=== PATIENT | female | born 1980 | race Caucasian/White ===

== ENCOUNTER → 2016-08-07 | Outpatient (CLI) | payer BC ==
[2016-08-07 12:05] LABS: URINE APPEARANCE CLEAR (CLEAR); URINE BILIRUBIN NEG (NEG); URINE COLOR YELLOW; URINE EPITHELIAL CELL AUTO >30 /lpf (0-5); URINE NITRITE NEG (NEG); URINE SPECIFIC GRAVITY 1.026 (1.000-1.030); UROBILINOGEN NEG (NEG)
[2016-08-07 12:14] LABS: MANUAL MICROSCOPIC REQUIRED? NO; REVIEW REQ? NO
== END | disposition home or self-care (01) ==
LOC: C.LABSPEC 11:01
PROVIDERS: ATTEND Obstetrics & Gynecology
DX: O34.219 Maternal care for unspecified type scar from previous cesarean delivery (principal)

== ENCOUNTER → 2016-08-15 | Outpatient (CLI) | payer BC ==
[2016-08-15 10:25] LABS: BASO % 0.2 %; BASO ABS # 0.01 K/uL (0-0.2); COMPLETE YES; EOS % 0.6 %; HEMATOCRIT 40.4 % (37-47); IG% 0.2 %; LYMPH % 29.4 %; LYMPH ABS # 1.82 K/uL (1.2-3.4); MEAN CELL VOLUME 88.4 fL (80-100); MEAN CORPUSCULAR HEMOGLOBIN 30.4 pg (25-34); MEAN CORPUSCULAR HGB CONC 34.4 g/dl (32-36); MEAN PLATELET VOLUME 10.1 fL (7.4-10.4); MONO % 6.1 %; NEUT % 63.5 %; PLATELET COUNT 197 K/uL (130-400); RED BLOOD COUNT 4.57 M/uL (4.2-5.4)
== END | disposition home or self-care (01) ==
LOC: C.LAB1850 09:02
PROVIDERS: ATTEND Obstetrics & Gynecology
DX: O34.219 Maternal care for unspecified type scar from previous cesarean delivery (principal)

== ENCOUNTER → 2016-08-15 | Outpatient (CLI) | payer BC ==
[2016-08-18 01:39] LABS: CHLAMYDIA TRACH RNA*** NOT DETECTED (NOT DETECTED); GC (NEIS GONORRHOEAE)RNA** NOT DETECTED (NOT DETECTED)
== END | disposition home or self-care (01) ==
LOC: C.LABSPEC 13:53
PROVIDERS: ATTEND Obstetrics & Gynecology
DX: O34.219 Maternal care for unspecified type scar from previous cesarean delivery (principal)

== ENCOUNTER → 2016-10-04 | Outpatient (CLI) | payer BC ==
[2016-10-04 13:23] LABS: GTGD 50 Grams
[2016-10-09 15:27] LABS: AFP MULTIPLE OF MEDIAN 0.97; AFPTS GESTATIONAL AGE 15.9 WEEKS; AFPTS INSULIN DEP DIABETIC? NO; AFPTS MATERNAL WT 195 LBS; ALPHA-FETOPROTEIN RACE CAUCASIAN=W; ESTRIOL MULTIPLE OF MEDIAN 1.07; HISTORY OF NTD NO; INHIBIN A 132 PG/ML; INHIBIN A MOM 0.86; REPEAT SAMPLE? NO; hCG MULTIPLE OF MEDIAN 1.19
== END | disposition home or self-care (01) ==
LOC: C.LAB1850 10:34
PROVIDERS: ATTEND Obstetrics & Gynecology
DX: Z34.81 Encounter for supervision of other normal pregnancy, first trimester (principal)

== ENCOUNTER → 2017-02-22 | Outpatient (CLI) | payer BC | END | disposition home or self-care (01) | LOC: C.LABSPEC 11:13 | PROVIDERS: ATTEND Obstetrics & Gynecology | DX: Z34.83 Encounter for supervision of other normal pregnancy, third trimester (principal) ==

== ENCOUNTER 2017-03-24 02:51 | Inpatient (IN) | payer OTHER ==
[~2017-03-24] VITALS: Ht 180.3 cm; Wt 99.5 kg
[~2017-03-24 02:51] MED LIST: PRENTAB26 PO
[2017-03-24] MEDS ORDERED: LACTATED RINGER'S 1000ML 1,000 ML IV PRN (03:03)
[2017-03-24 03:30] LABS: HEMATOCRIT 38.2 % (37-47); HEMOGLOBIN 13.1 g/dL (12.0-16.0); MEAN CELL VOLUME 90.5 fL (80-100); MEAN PLATELET VOLUME 10.6 fL (7.4-10.4); PLATELET COUNT 127 K/uL (130-400); RED CELL DISTRIBUTION WIDTH CV 14.1 % (11.5-14.5); RED CELL DISTRIBUTION WIDTH SD 46.2 fL (36.4-46.3); WHITE BLOOD COUNT 10.84 K/uL (4.8-10.8)
[2017-03-24] MEDS ORDERED: BUPIVACAINE 0.25% 30 ML VIAL ONE (03:31)
[2017-03-24] MEDS ORDERED: EpHEDrine SULFATE INJ 50 MG/ML AMP ONE (03:31)
[2017-03-24] MEDS ORDERED: FENTANYL CITRATE INJ 50 MCG/1 ML 2 ML VIAL ONE (03:31)
[2017-03-24] MEDS ORDERED: FENTANYL 2MCG/ML ROPIV 1.25MG/ML 100ML BAG EPI ONE (03:32)
[2017-03-24 03:46] LABS: MEAN CORPUSCULAR HGB CONC 34.3 g/dl (32-36)
[2017-03-24] MEDS ORDERED: LACTATED RINGER'S 1000ML 500 ML IV PRN (04:08)
[2017-03-24] MEDS: LACTATED RINGER'S 1000ML 1,000 ML IV SCH ×2 (04:13→04:14)
[2017-03-24] MEDS ORDERED: NALOXONE HCL INJ 0.4 MG/1 ML VIAL/CARP IV PRN (04:15)
[2017-03-24] MEDS ORDERED: EpHEDrine SULFATE INJ 50 MG/ML AMP IV PRN (04:15)
[2017-03-24] MEDS ORDERED: FENTANYL 2MCG/ML ROPIV 1.25MG/ML 100ML BAG EPI PRN (04:15)
[2017-03-24 05:40] VITALS: Ht 180.3 cm; Wt 99.5 kg
[2017-03-24] MEDS ORDERED: OXYTOCIN 30 UNITS/500ML NSS IV ONE (06:53)
[2017-03-24] MEDS ORDERED: OXYCODONE/ACETAMINOPHEN 5-325 TAB PO PRN (09:15)
[2017-03-24] MEDS ORDERED: ACETAMINOPHEN/CODEINE 300/30MG TAB PO PRN ×2 (09:15)
[2017-03-24] MEDS ORDERED: DIPHTHERIA/TETANUS/PERTUSSIS 0.5 ML SYR/VIAL IM. ONE (09:15)
[2017-03-24] MEDS ORDERED: OXYTOCIN 30 UNITS/500ML NSS IV PRN (09:15)
[2017-03-24] MEDS ORDERED: LANOLIN OINT EXT PRN (09:15)
[2017-03-24] MEDS ORDERED: SUPERCREAM 0.870 % 15GM JAR EXT PRN (09:15)
[2017-03-24] MEDS ORDERED: HYDROCORTISONE ACETATE 25 MG SUPP PR PRN (09:15)
[2017-03-24] MEDS ORDERED: BENZOCAINE 20% AER SPR 82.5 GM CAN EXT PRN (09:15)
--- NOTE | 2017-03-24 09:24 | DELIVERY SUMMARY ---
DATE OF OPERATION: 03/24/2017 DELIVERY NOTE Suha is a . She arrived in labor for Dr. 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 She delivered with a small midline episiotomy as the patient was already tearing and reaching maternal exhaustion. I did ask the patient verbally if she agreed to this and she said she did. The baby was delivered head first, mouth and then nares suctioned. There was no nuchal cord. We did flatten her head and perform Eve maneuver and I was able to reach the anterior shoulder. Gentle traction here was able to delivery the baby combined with maternal pushing efforts. The baby was then delivered without difficulty, live vigorous male . Cord clamped and cut. Cord gasses obtained. Cord collection for donation also obtained. Placenta removed with gentle traction. IV Pitocin started. Midline episiotomy repaired with 3-0 Vicryl. The episiotomy simply extended along the prior tearing and there was no further tearing. Estimated blood loss 300 mL. Sponge and instrument counts were correct. I attest to the content of the Intraoperative Record and any orders documented therein. Any exception s are noted below.
[2017-03-24 13:20] VITALS: BP 116/76; PULSE 74; TEMP 36.6; O2SAT 97
[2017-03-24 15:30] VITALS: BP 116/77; PULSE 80; TEMP 36.7
[2017-03-24] MEDS: IBUPROFEN 600 MG TAB PO PRN (18:55)
[2017-03-24 19:00] VITALS: BP 114/73; PULSE 80; TEMP 36.6
[2017-03-24] MEDS: DOCUSATE SODIUM 100 MG CAP PO SCH (21:05)
[2017-03-24] MEDS: ACETAMINOPHEN 325 MG TAB PO PRN (21:18)
[2017-03-25] VITALS: BP 108/70; PULSE 78; TEMP 36.4; O2SAT 97
[2017-03-25 02:40] VITALS: BP 110/71; PULSE 76; TEMP 36.4; O2SAT 98
[2017-03-25 06:16] LABS: HEMATOCRIT 33.9 % (37-47); HEMOGLOBIN 11.5 g/dL (12.0-16.0)
[2017-03-25 07:20] VITALS: BP 104/69; PULSE 90; TEMP 36.5
--- NOTE | 2017-03-25 07:37 | Progress Note ---
Subjective Mar 25, 2017. Subjective conversation w/ patient, physical exam, lab review Ambulation: ambulating normally Voiding: no voiding problems Passing Gas: Yes Diet Tolerance: Regular Diet Lochia: Small Feeding Type: Breast Feeding Objective Vital Signs Date Time Temp Pulse Resp B/P (MAP) Pulse Ox O2 Delivery O2 Flow Rate FiO2 03/25/17 02:40 36.4 76 16 110/71 (84) 98 Room Air 03/25/17 00:00 97 Room Air 03/25/17 00:00 36.4 78 18 108/70 (83) 97 Room Air 03/24/17 19:00 36.6 80 20 114/73 (87) Room Air 03/24/17 15:30 36.7 80 20 116/77 (90) Room Air 03/24/17 15:30 Room Air 03/24/17 13:20 97 Room Air 03/24/17 13:20 36.6 74 18 116/76 (89) 97 Room Air Physical Exam General Appearance: WELL-APPEARING Respiratory/Chest: lungs clear Abdomen: non tender Extremities: no calf tenderness Laboratory Results Last 24 Hours Test 03/25/17 05:53 Hemoglobin 11.5 g/dL Hematocrit 33.9 % Assessment and Plan Post- Day#: 1 Continue Routine Care: Successful V-Vac she is doing well minimal bleeding no extremity pain
[2017-03-25] MEDS: IBUPROFEN 600 MG TAB PO PRN ×2 (07:38→15:46)
[2017-03-25] MEDS: DOCUSATE SODIUM 100 MG CAP PO SCH ×2 (08:20→20:02)
[2017-03-25] MEDS: PRENATAL VITAMIN TAB PO SCH (08:20)
[2017-03-25] MEDS ORDERED: COUGH DROP (SUGAR FREE) LOZ 24 LOZ/1 BOX LOZ ONE (11:27)
[2017-03-25 16:15] VITALS: BP 104/68; PULSE 83; TEMP 36.6
[2017-03-25] MEDS: ACETAMINOPHEN 325 MG TAB PO PRN (18:07)
[2017-03-25] MEDS ORDERED: BISACODYL 5 MG TABEC PO SCH (20:00)
[2017-03-25 23:20] VITALS: BP 132/71; PULSE 82; TEMP 36.6; O2SAT 98
[2017-03-26] MEDS: ACETAMINOPHEN 325 MG TAB PO PRN (06:03)
--- NOTE | 2017-03-26 06:36 | Progress Note ---
Subjective Mar 26, 2017. Subjective conversation w/ patient, physical exam, lab review Ambulation: ambulating normally Voiding: no voiding problems Passing Gas: Yes Diet Tolerance: Regular Diet Lochia: Small Feeding Type: Breast Feeding Objective Vital Signs Date Time Temp Pulse Resp B/P (MAP) Pulse Ox O2 Delivery O2 Flow Rate FiO2 03/25/17 23:20 98 Room Air 03/25/17 23:20 36.6 82 18 132/71 (91) 98 Room Air 03/25/17 16:15 36.6 83 18 104/68 (80) 03/25/17 16:15 Room Air 03/25/17 07:20 36.5 90 18 104/69 (81) Room Air 03/25/17 07:20 Room Air Physical Exam General Appearance: WELL-APPEARING Abdomen: non tender Fundus: Firm Extremities: no calf tenderness Laboratory Results Last 24 Hours Test 03/26/17 04:44 Assessment and Plan Post- Day#: 2 Continue Routine Care: Patient is doing well meets discharge criteria she has no extremity pain or bleeding is minimal advised to follow up in the office
--- NOTE | 2017-03-26 06:37 | Discharge Instructions ---
Discharge Instructions Date of Service Mar 26, 2017. Admission Reason for Admission: 40 Weeks Gestation Of , Desires Vaginal Discharge Discharge Diagnosis / Problem: Discharge Goals Goal(s): Routine recovery after delivery Activity Recommendations Activity Limitations: per Instructions/Follow-up section . Instructions / Follow-Up Instructions / Follow-Up ACTIVITY RECOMMENDATIONS: * Gradual return to full activity over the next 2-3 weeks. * No lifting - nothing heavier than baby over the next 2-3 weeks. * Do not engage in vigorous exercise, sexual activity or sports until cleared by your physician. * Do not drive or operate any motorized equipment until cleared by your physician. * You may shower/bathe daily. MEDICATIONS: For discomfort or pain, you may use Acetaminophen (Tylenol), Ibuprofen (Advil), or Naproxen (Aleve) following the package directions. For constipation you may use Colace following the package directions. BREAST CARE: If you are not breast feeding: * Wear a supportive bra 24 hours a day for one to two weeks. * Avoid stimulating your breasts and nipples as much as possible during the first few weeks after delivery. * When taking a shower, have the warm water hit your back, not breasts. * When your breasts feel full, apply ice packs. Usually three to four times a day helps ease the discomfort. * Take a mild pain medication (Tylenol / Motrin) when you are uncomfortable. If breast feeding: * Use breast milk to lubricate nipples. Lansinoh cream may be used for sore nipples. You do not need to remove cream prior to breast feeding. If using a different brand of cream, check the label for directions regarding removal of cream prior to nursing. * Wear a supportive bra. * If having problems with breasts or breast feeding, call a oncology consultant or your health care provider. EPISIOTOMY CARE: After delivery, if you have an episiotomy (stitches), the following steps will ease discomfort and aid healing. * For the first 24 hours after delivery, place ice packs next to your episiotomy to help reduce swelling. * After the first 24 hour-period, sitz baths, either portable or in the tub, are suggested. A shower with a shower arm sprayed over the episiotomy may be comforting. * Mel care should be done after each voiding and bowel movement. Squirt warm water from a plastic bottle over the perineum (region of the body between the anus and urinary opening) and pat dry. * Use Dermoplast to ease discomfort. Shake container. Brooks directly over the episiotomy. Place a Tucks on a clean sanitary pad next to your episiotomy. SPECIAL CARE INSTRUCTIONS: When you are discharged from the hospital, it is important for you to follow the instructions listed below: * During the first week at home, you should be able to care for yourself and your baby. In addition, the usual light household activities are encouraged. * Limit your activities to the way you feel. Do not try to clean the house or move furniture. Be sensible. * If you actively engage in sports and have done so up until the time of your delivery, you may resume these activities as soon as you feel able. This may take up to one month or even longer. Use good judgment. * Continue to take your vitamins for at least six weeks after the of your baby. * Your diet need not be limited unless you were on a special diet before your delivery. Breast-feeding mothers need around 2500 calories per day and at least 64-80 ounces of fluid per day (8 to 10 glasses). * You should eat foods from the four major food groups. Crash diets or fad diets are to be avoided. Eating lean meats, fresh fruits and vegetables, low-fat dairy products, high fiber foods and a regular exercise program, will help you get back to your pre- weight without putting your health at risk. * Constipation is sometimes a problem after delivery. Take a mild laxative as needed. If breast feeding, Milk of Magnesia is acceptable to use. You may use a suppository or Fleets enema if no episiotomy. * A daily shower or tub bath is suggested. Be sure to thoroughly and gently dry the perineum. * A bloody vaginal discharge will usually continue until around four weeks post . A small amount of bleeding may continue for as long as six weeks. Vaginal discharge changes from the bright red bleeding after delivery to pink then brownish and finally yellowish-pink before becoming white and disappearing. * Bleeding may increase with activity. Your first period may come in 4-8 weeks. If you are breast feeding, your period may be delayed even longer. * [place] (sex) can begin whenever both you and your partner feel comfortable and do not have any form of genital infection. It is recommended that you wait at least six weeks for internal and external healing to occur. If you have questions, please talk to your health care practitioner. A condom should be used to prevent infection and . * Foreplay, gentle intercourse and lubrication is very important the first several times to prevent pain. A water-based lubricant such as K-Y jelly or Astroglide may be used. * If you have RH negative blood and your baby is RH positive, you will receive RHOGAM by injection prior to discharge. The nurse will give you a card to keep with you that has the date and place that you received RHOGAM after delivery. * During your care, you had a Rubella screen done to check for the presence of rubella antibodies in your blood. If your test was negative, you will receive a Rubella vaccine prior to discharge. This vaccine may cause a fever, soreness at the injection site and flu-like symptoms. If these symptoms persist, notify your health care practitioner. is not advised for one month after a Rubella vaccine. * Verbalizes understanding of car seat law as reviewed with patient nursing. * Car Seat hand-out given and reviewed with patient by nursing. * Shaken baby information reviewed with patient by nursing. Call you doctor if: * Heavy bleeding (saturating several pads an hour) or passing clots the size of your fist. * A fever >101 degrees F (38.3 degrees C) on two occasions four hours apart and /or chills. * Unusual pain in the pelvic or vaginal areas. * "Baby Blues" lasting longer than two weeks. If you have any questions or concerns, call your health care practitioner at . FOLLOW UP VISIT: * Please call the office at to schedule a 6 week examination. It is important you keep this appointment. It is important for you to make arrangements for either yearly or twice yearly check-ups thereafter. Current Hospital Diet Patient's current hospital diet: Regular OB Diet Discharge Diet Recommended Diet: Regular OB Diet Pending Studies Studies pending at discharge: no Medical Emergencies . Who to Call and When: Medical Emergencies: If at any time you feel your situation is an emergency, please call 911 immediately. . Non-Emergent Contact Non-Emergency issues call your: [employer] . . "Provider Documentation" section prepared by Jesus Alberto Elliott. . VTE Core Measure Inpt VTE Proph given/why not?: Treatment not indicated
[2017-03-26] MEDS ORDERED: BISACODYL 10 MG SUPP PR PRN (07:00)
[2017-03-26 07:53] LABS: HEMATOCRIT 32.9 % (37-47); MEAN CELL VOLUME 92.7 fL (80-100); MEAN CORPUSCULAR HGB CONC 33.4 g/dl (32-36); MEAN PLATELET VOLUME 9.9 fL (7.4-10.4); PLATELET COUNT 118 K/uL (130-400); RED CELL DISTRIBUTION WIDTH CV 14.4 % (11.5-14.5); RED CELL DISTRIBUTION WIDTH SD 48.2 fL (36.4-46.3)
[2017-03-26] MEDS: DOCUSATE SODIUM 100 MG CAP PO SCH (08:25)
[2017-03-26] MEDS: PRENATAL VITAMIN TAB PO SCH (08:25)
[2017-03-26 08:50] VITALS: BP 112/74; PULSE 88; TEMP 36.7
[2017-03-26] MEDS: IBUPROFEN 600 MG TAB PO PRN (09:11)
== END 2017-03-26 11:00 | disposition home or self-care (01) | DRG 775 ==
LOC: C.OPB 02:51 → C.LD 02:55 → C.OPB 03:07 → C.OBG 12:46
PROVIDERS: ADMIT Obstetrics & Gynecology; ATTEND Obstetrics & Gynecology
PROC: 10E0XZZ Delivery of Products of Conception, External Approach (ICD-10-PCS; principal; 2017-03-24)
PROC: 0W8NXZZ Division of Female Perineum, External Approach (ICD-10-PCS; principal; 2017-03-24)
DX: O75.81 Maternal exhaustion complicating labor and delivery (principal); O34.219 Maternal care for unspecified type scar from previous cesarean delivery; Z3A.40 40 weeks gestation of pregnancy; Z37.0 Single live birth